=== PATIENT | female | born 1950 | race Caucasian/White ===

== ENCOUNTER 2018-01-22 07:10 | Day surgery (SDC) | payer MEDICARE ==
[2018-01-22 07:43] VITALS: BMI 21.2
[2018-01-22 07:53] VITALS: TEMP 98.4
[2018-01-22 07:55] VITALS: BP 162/72
--- NOTE | 2018-01-22 10:31 | RAD ---
LUMBAR SPINE MYELOGRAM: INDICATION: Low back pain and lumbar radiculopathy. PROCEDURE: Informed consent was obtained, and the patient was transferred to the interventional suite. Marinator im aging was performed prior to the procedure. The patient was then placed into a prone position, and the low back was prepped and draped in the sta ndard sterile fashion. Topical anesthesia was achieved with 1% lidocaine buffered with sodium bicarb deena. Using a 22 gauge needle, uneventful access was obtained into the thecal sac from an interlami thomas approach at the L3-4 level. Clear color CSF was noted at the needle hub. Subsequently, 9 cc Iso huyen M200 was instilled into the thecal sac. This was performed under real-time fluoroscopy with appr opriate contrast opacification of the thecal sac demonstrated during the exam with adequate contrast opacification achieved. The needle was removed. The patient tolerated the procedure well without ev idence of complication. The patient was then transferred to CT Department to undergo further imaging . Please reference separate CT myelogram for additional details. Exposure data: 0.2 minutes fluoroscopy time; 18 mGy*cm^2. IMPRESSION: Technically successful lumbar spine myelogram. POS: [facility]
[2018-01-22] MEDS ORDERED: Iopamidol-M 200 41% 20 ML VIAL ONE (14:57)
--- NOTE | 2018-01-23 07:49 | CT ---
CT LUMBAR SPINE WITH CONTRAST: CT MYELOGRAM OF LUMBAR SPINE: CLINICAL HISTORY: Spondylolisthesis. Low back pain. Lumbar radiculopathy. FINDINGS: There is incidental note of partial visualization of vertebroplasty of T12. Posterior metallic fusio n spans the L2 through the L5 segments with bilateral pedicle screws at L2, L3, L4, and L5, as well a s bilateral vertical interconnecting rods. There is a prominent degree of left convexity scoliosis, which demonstrates apex at the L1-L2 level. There is multilevel endplate osteophytosis, as well as g as vacuum phenomenon and gas containing Schmorl's node formation. No significant perihardware lucenc y is present. The conus medullaris terminates at the L1 level. L5-S1: Bilateral moderate degenerative facet hypertrophy is present. There is a disk osteophyte com plex without high grade central canal stenosis. The right neural foramen is patent. There is minima l narrowing of the left neural foramen. L4-L5: Intervertebral disk space prosthesis is present with broad-based osteophyte. Evidence of pos terior decompression. The thecal sac is patent. There is mild left neural foraminal narrowing. No significant right foraminal stenosis. L3-L4: Posterior decompression is present. There is an intervertebral disk prosthesis with a broad- based osteophyte ridge. The thecal sac is patent. Mild osseous narrowing of each neural foramen is present. L2-L3: Intervertebral disk space prosthesis is present. There is a broad-based osteophyte ridge. N o significant compromise of the thecal sac. There is moderate right and mild to moderate left neural foraminal narrowing. L1-L2: Broad-based disk osteophyte is present. There is bilateral facet hypertrophy. Moderate narr owing of the right subarticular zone is present with impingement upon the traversing right L2 nerve r oot. There is mild central canal stenosis. Mild bilateral neural foraminal narrowing is present. There is diffuse atherosclerosis and evidence of prior bypass graft placement, partially visualized. IMPRESSION: Postoperative lumbar spine with multilevel degenerative change and levoscoliosis. There is no eviden ce of hardware complication or significant central canal stenosis. POS: [facility]
== END 2018-01-22 09:50 | disposition home or self-care (01) ==
LOC: RAD 07:10
PROVIDERS: ATTEND Surgery
PROC: B02BY0Z Computerized Tomography (CT Scan) of Spinal Cord using Other Contrast, Unenhanced and Enhanced (ICD-10-PCS; principal; 2018-01-22)
DX: M47.26 Other spondylosis with radiculopathy, lumbar region (principal); J44.9 Chronic obstructive pulmonary disease, unspecified; I10 Essential (primary) hypertension; K21.9 Gastro-esophageal reflux disease without esophagitis; F32.9 Major depressive disorder, single episode, unspecified; I73.9 Peripheral vascular disease, unspecified; E78.00 Pure hypercholesterolemia, unspecified; Z79.899 Other long term (current) drug therapy
CPT/HCPCS: 62304; 72132

== ENCOUNTER 2018-02-28 11:37 | Inpatient (IN) | payer MEDICARE ==
[2018-03-15 15:26] VITALS: BMI 20.9
[2018-03-18 08:00] LABS: Hemoglobin 12.1 g/dL (12.0-16.0); Mean Corpuscular HGB CONC 34.6 g/dL (32.0-36.0); Mean Corpuscular Hemoglobin 31.4 pg (27.0-31.0); Mean Corpuscular Volume 90.9 fL (78.0-98.0); Mean Platelet Volume 6.9 fL (7.4-10.4); Platelet Count 286 thou/uL (130-400); RBC Distribution Width 11.3 % (11.5-14.5); Red Blood Cell (RBC) Count 3.84 mill/uL (4.20-5.40); White Blood Cell (WBC) Count 7.2 thou/uL (4.8-10.8)
[2018-03-18 08:19] LABS: Anion Gap 15 mmol/L (10-20); BUN (Urea Nitrogen) 11 mg/dL (9.8-20.1); Calc. Creatinine Clearance 58 mL/min (70-130); Calcium 9.4 mg/dL (7.8-10.44); Carbon Dioxide 24 mmol/L (23-31); Chloride 100 mmol/L (98-107); Estimated GFR-MDRD 72; Glucose 98 mg/dL (80-115); Potassium 4.5 mmol/L (3.5-5.1); Sodium 134 mmol/L (136-145)
[2018-03-18] MEDS ORDERED: CEFAZOLIN/Water 2 GM/20 ML SYRINGE ONE (08:31)
[2018-03-18] MEDS ORDERED: Sodium Chloride 0.9% 10 ML ONE (08:42)
[2018-03-18] MEDS ORDERED: Fentanyl 100 MCG/2 ML VIAL ONE ×4 (08:59→11:06)
[2018-03-18] MEDS ORDERED: HYDROmorphone 2 MG/ML VIAL SLOW IVP PRN (10:02)
[2018-03-18] MEDS ORDERED: Ondansetron HCl/PF 4 MG/2 ML Vial IVP PRN (10:02)
[2018-03-18] MEDS ORDERED: Meperidine HCl/PF 25 MG/ML VIAL SLOW IVP PRN (10:02)
[2018-03-18] MEDS ORDERED: Promethazine HCl 25 MG/ML VIAL IM PRN ×2 (10:02→12:42)
[2018-03-18] MEDS ORDERED: Morphine Sulfate 2 MG/ML SYRINGE SLOW IVP PRN (10:02)
[2018-03-18] MEDS ORDERED: Promethazine HCl 25 MG/ML VIAL SLOW IVP PRN (10:02)
--- NOTE | 2018-03-18 10:34 | OP ---
DATE OF PROCEDURE: 03/18/2018 SURGEON: Tino Cruz M.D. PAYROLL SPECIALIST: Preet Smith PA-C. PROCEDURE: Removal of hardware L2-L5, exploration, spinal fusion L2-L5, L1-2 posterolateral arthrode sis, pedicle screw instrumentation L1-2, demineralized bone matrix, local morselized autograft. PROCEDURE IN DETAIL: The patient was brought into the operating room and intubated. She was rolled in a prone position on gel-filled chest rolls. The previous incision was reopened and the L1-2 level was exposed as well as the L2 through L5 hardware. We removed the nuts and rods at these levels. W e explored the spinal fusion and it seemed to be solid. We next placed pedicle screws at L1 bilatera lly using lateral fluoroscopic guidance. A 1 level gael was secured between L1 and L2, secured by nut s, which were final tightened. The wound was then extensively irrigated, immaculate hemostasis was s ecured. A combination of demineralized bone matrix, local morselized autograft was laid over the blair inar, and posterolateral surfaces for the purpose of arthrodesis. Vancomycin powder was applied and the wound was closed in anatomic layers.
[2018-03-18] MEDS ORDERED: HYDROcodone/Acetaminophen 10/325 mg Tablet PO PRN (12:13)
[2018-03-18] MEDS ORDERED: PROVENTIL INHALER 6.7 G (200 INHALATIONS) INH SCH (12:30)
[2018-03-18] MEDS ORDERED: Promethazine 25 MG TAB PO PRN (12:42)
[2018-03-18] MEDS ORDERED: diphenhydrAMINE 50 MG/ML VIAL IVP PRN (12:42)
[2018-03-18] MEDS ORDERED: tiZANidine HCl 4 MG TAB PO PRN (12:42)
[2018-03-18] MEDS ORDERED: Mag-Al 1200 mg/1200 mg/30 ML UDCUP PO PRN (12:42)
[2018-03-18] MEDS ORDERED: Milk Of Magnesia 30 ML UDCUP PO PRN (12:42)
[2018-03-18] MEDS ORDERED: traMADol HCl 50 MG TAB PO PRN ×2 (12:42)
[2018-03-18] MEDS ORDERED: Ondansetron HCl/PF 4 MG/2 ML Vial IM PRN (12:42)
[2018-03-18] MEDS ORDERED: Promethazine HCl 12.5 MG SUPP PR PRN (12:42)
[2018-03-18] MEDS ORDERED: diphenhydrAMINE 25 MG CAP PO PRN (12:42)
[2018-03-18] MEDS ORDERED: Morphine 4 MG/ML VIAL IV PRN (12:45)
[2018-03-18] MEDS ORDERED: PROPOFOL 200 MG/20 ML VIAL ONE (13:07)
[2018-03-18] MEDS ORDERED: Dexamethasone 20 MG/5 ML VIAL ONE (13:07)
[2018-03-18] MEDS ORDERED: Glycopyrrolate 0.2 MG/ML 5 ML SYRINGE ONE (13:07)
[2018-03-18] MEDS ORDERED: Metoclopramide HCl 10 MG/2 ML VIAL ONE (13:07)
[2018-03-18] MEDS ORDERED: Ondansetron HCl/PF 4 MG/2 ML Vial ONE (13:07)
[2018-03-18] MEDS ORDERED: Lidocaine 1% PF 5 ML VIAL ONE (13:07)
[2018-03-18] MEDS ORDERED: PROVENTIL INHALER 6.7 G (200 INHALATIONS) INH PRN (14:05)
[2018-03-18] MEDS ORDERED: Nitroglycerin 0.4 MG TAB (25 Tab Bottle) SL PRN (14:08)
[2018-03-18] MEDS ORDERED: hydrALAZINE 20 MG/ML VIAL SLOW IVP PRN (14:08)
[2018-03-18] MEDS ORDERED: Diabetic Tussin 200 MG/10 ML UDCUP PO PRN (14:08)
[2018-03-18] MEDS ORDERED: Loratadine 10 MG TAB PO PRN (14:08)
[2018-03-18] MEDS ORDERED: Benzonatate 100 MG CAP PO PRN (14:08)
[2018-03-18] MEDS ORDERED: Bisacodyl 5 MG TAB PO PRN (14:08)
[2018-03-18] MEDS ORDERED: Acetaminophen 325 MG TAB PO PRN (14:08)
[2018-03-18] MEDS ORDERED: Senokot 8.6 MG TAB PO PRN (14:08)
[2018-03-18] MEDS ORDERED: cloNIDine 0.1 MG TAB PO PRN (14:08)
[2018-03-18] MEDS: CEFAZOLIN/Water 2 GM/20 ML SYRINGE SLOW IVP SCH ×2 (14:11→22:32)
[2018-03-18] MEDS: tiZANidine HCl 4 MG TAB PO SCH ×2 (14:11→20:23)
[2018-03-18] MEDS: HYDROcodone/Acetaminophen 10/325 mg Tablet PO PRN ×2 (14:13→18:33)
--- NOTE | 2018-03-18 14:34 | PDOC.PN ---
- Subjective Encounter Start Date: 03/18/18 Encounter Start Time: 14:33 Subjective: S/P lumbar spinal Sx.Feels well except for back pain at surgical site -: no nausea/vomiting.no CP/SOB/F/Chills - Objective MAR Reviewed: Yes Vital Signs & Weight: Weight Weight 120 lb Result Diagrams: 03/18/18 07:51 03/18/18 07:51 Phys Exam - Physical Examination Constitutional: NAD HEENT: PERRLA, moist MMs, sclera anicteric, oral pharynx no lesions Neck: no nodes, no JVD, supple, full ROM Respiratory: no wheezing, no rales, no rhonchi, clear to auscultation bilateral Cardiovascular: RRR, no significant murmur, no rub Gastrointestinal: soft, non-tender, no distention, positive bowel sounds Musculoskeletal: no edema, pulses present Neurological: non-focal, normal sensation, moves all 4 limbs Psychiatric: normal affect, A&O x 3 Skin: no rash Dx/Plan (1) HTN (hypertension) Code(s): I10 - ESSENTIAL (PRIMARY) HYPERTENSION Status: Chronic (2) HLD (hyperlipidemia) Code(s): E78.5 - HYPERLIPIDEMIA, UNSPECIFIED Status: Chronic (3) GERD (gastroesophageal reflux disease) Code(s): K21.9 - GASTRO-ESOPHAGEAL REFLUX DISEASE WITHOUT ESOPHAGITIS Status: Chronic (4) Depression Code(s): F32.9 - MAJOR DEPRESSIVE DISORDER, SINGLE EPISODE, UNSPECIFIED Status : Chronic (5) COPD (chronic obstructive pulmonary disease) Status: Chronic (6) PAD (peripheral artery disease) Code(s): I73.9 - PERIPHERAL VASCULAR DISEASE, UNSPECIFIED Status: Chronic (7) S/P lumbar fusion Code(s): Z98.1 - ARTHRODESIS STATUS Status: Acute Comment: POD#0 - Plan PT/OT, DVT proph w/SCDs restart home meds as below. reviewed.hemodynamically stable -: add prn anti hypertensives. -: SCds for DVT prophylaxis. -: add duonebs prn. -: am labs, IM team will follow * . Review of Systems - Review of Systems Constitutional: negative: fever, chills, sweats, weakness, malaise, other Eyes: negative: Pain, Vision Change, Conjunctivae Inflammation, Eyelid Inflammation, Redness, Other ENT: negative: Ear Pain, Ear Discharge, Nose Pain, Nose Discharge, Nose Congestion, Mouth Pain, Mouth Swelling, Throat Pain, Throat Swelling, Other Respiratory: negative: Cough, Dry, Shortness of Breath, Hemoptysis, SOB with Excertion, Pleuritic Pain, Sputum, Wheezing Cardiovascular: negative: chest pain, palpitations, orthopnea, paroxysmal nocturnal dyspnea, edema, light headedness, other Gastrointestinal: negative: Nausea, Vomiting, Abdominal Pain, Diarrhea, Constipation, Melena, Hematochezia, Other Genitourinary: negative: Dysuria, Frequency, Incontinence, Hematuria, Retention , Other Musculoskeletal: Back Pain. negative: Neck Pain, Shoulder Pain, Arm Pain, Hand Pain, Leg Pain, Foot Pain, Other Neurological: negative: Weakness, Numbness, Incoordination, Change in Speech, Confusion, Seizures, Other - Medications/Allergies Allergies/Adverse Reactions: Allergies Allergy/AdvReac Type Severity Reaction Status Date / Time egg Allergy Diarrhea Verified 03/15/18 15:27 Medications: Current Medications Acetaminophen (Tylenol) 650 mg PO Q4H PRN PRN Reason: Headache/Fever or Mild Pain Hydrocodone Bitart/Acetaminophen (Sesser 10/325) 1 tab PO Q4H PRN PRN Reason: PAIN (1-3) Last Admin: 03/18/18 14:13 Dose: 1 tab Hydrocodone Bitart/Acetaminophen (Sesser 10/325) 2 tab PO Q4H PRN PRN Reason: PAIN (4-6) Al Hydroxide/Mg Hydroxide (Maalox) 30 ml PO Q4H PRN PRN Reason: Heartburn or Indigestion Albuterol Sulfate (Proventil Hfa) 2 puff INH ASDIR IRISH Albuterol Sulfate (Proventil Hfa) puff INH ASDIR PRN PRN Reason: Wheezing Ascorbic Acid (Vitamin C) 1,000 mg PO DAILY [facility] Atorvastatin Calcium (Lipitor) 40 mg PO HS IRISH Benzonatate (Tessalon) 100 mg PO Q4H PRN PRN Reason: Cough Bisacodyl (Dulcolax) 10 mg PO DAILYPRN PRN PRN Reason: Constipation Cefazolin Sodium (Ancef) 2 gm SLOW IVP Q8HR IRISH Last Admin: 03/18/18 14:11 Dose: 2 gm Citalopram Hydrobromide (Celexa) 20 mg PO DAILY [facility] Clonidine (Catapres) 0.1 mg PO Q4H PRN PRN Reason: Systolic BP > 160 Diphenhydramine HCl (Benadryl) 25 mg PO Q6H PRN PRN Reason: Itching Diphenhydramine HCl (Benadryl) 25 mg IVP Q6H PRN PRN Reason: Itching Gabapentin (Neurontin) 1,200 mg PO QPM-[facility] Gabapentin (Neurontin) 600 mg PO TID [facility] Last Admin: 03/18/18 14:11 Dose: 600 mg Guaifenesin (Robitussin Sf) 200 mg PO Q4H PRN PRN Reason: Cough Hydralazine HCl (Apresoline) 10 mg SLOW IVP Q4H PRN PRN Reason: Systolic BP > 170 Sodium Chloride (Normal Saline 0.9%) 1,000 mls @ 75 mls/hr IV .[id number] [facility] Loratadine (Claritin) 10 mg PO DAILYPRN PRN PRN Reason: Sinus Symptoms Magnesium Hydroxide (Milk Of Magnesium) 30 ml PO Q12H PRN PRN Reason: Constipation Montelukast Sodium (Singulair) 10 mg PO QPM [facility] Morphine Sulfate (Morphine) 2 mg SLOW IVP Q1H PRN PRN Reason: Moderate Breakthrough Pain Morphine Sulfate (Morphine) 4 mg IV Q1H PRN PRN Reason: SEVERE BREAKTHROUGH PAIN Last Admin: 03/18/18 13:00 Dose: 4 mg Nitroglycerin (Nitrostat) 0.4 mg SL Q5MIN PRN PRN Reason: Chest Pain Non-Formulary Medication (Ascorbic Acid [Vitamin C]) 1,000 mg PO DAILY [facility] Non-Formulary Medication (Omeprazole [Omeprazole]) 20 mg PO DAILY [facility] Ondansetron HCl (Zofran) 4 mg IM Q24H PRN PRN Reason: Nausea/Vomiting Pantoprazole Sodium (Protonix) 40 mg PO DAILY [facility] Promethazine HCl (Phenergan) 12.5 mg IM Q4H PRN PRN Reason: Nausea/Vomiting Promethazine HCl (Phenergan) 12.5 mg PO Q4H PRN PRN Reason: Nausea/Vomiting Promethazine HCl (Phenergan Suppository) 12.5 mg [place] Q4H PRN PRN Reason: Nausea/Vomiting Senna (Senokot) 2 tab PO HSPRN PRN PRN Reason: Constipation Sodium Chloride (Flush - Normal Saline) 10 ml IVF Q12HR IRISH Sodium Chloride (Flush - Normal Saline) 10 ml IVF PRN PRN PRN Reason: Saline Flush Tizanidine HCl (Zanaflex) 4 mg PO TID [facility] Last Admin: 03/18/18 14:11 Dose: 4 mg Tizanidine HCl (Zanaflex) 4 mg PO Q6H PRN PRN Reason: MUSCLE SPASM Tramadol HCl (Ultram) 50 mg PO Q6H PRN PRN Reason: PAIN (1-3) Tramadol HCl (Ultram) 100 mg PO Q6H PRN PRN Reason: PAIN (4-6) Trospium (Trospium) 20 mg PO BID [facility] Varenicline (Chantix) 1 mg PO DAILY [facility]
[2018-03-18] MEDS ORDERED: Gabapentin 300 MG CAP PO SCH (15:00)
[2018-03-18] MEDS ORDERED: Gabapentin 400 MG CAP PO SCH ×2 (17:00→21:00)
[2018-03-18] MEDS: Sodium Chloride 0.9% 1,000 ML IV SCH (19:57)
[2018-03-18] MEDS: TROSPIUM 20 MG TABLET PO SCH (20:24)
[2018-03-18] MEDS ORDERED: Atorvastatin Calcium 40 MG TAB PO SCH (21:00)
[2018-03-18] MEDS ORDERED: Montelukast Sodium 10 mg Tablet PO SCH (21:00)
[2018-03-19] MEDS: Sodium Chloride 0.9% 1,000 ML IV SCH (01:27)
[2018-03-19] MEDS: HYDROcodone/Acetaminophen 10/325 mg Tablet PO PRN ×2 (02:02→11:27)
[2018-03-19 05:43] LABS: #Lymphocytes 1.6 thou/uL (1.20-3.40); #Monocytes 0.9 thou/uL (0.11-0.59); #Neutrophils 12.4 thou/uL (1.40-6.50); %Eosinophils 0.2 % (0.0-10.0); %Lymphocytes 10.7 % (21.0-51.0); %Monocytes 5.8 % (0.0-10.0); %Neutrophils 83.3 % (42.0-75.0); Hemoglobin 10.4 g/dL (12.0-16.0); Mean Corpuscular HGB CONC 34.2 g/dL (32.0-36.0); Mean Corpuscular Hemoglobin 31.2 pg (27.0-31.0); Mean Corpuscular Volume 91.1 fL (78.0-98.0); Mean Platelet Volume 6.8 fL (7.4-10.4); Platelet Count 290 thou/uL (130-400); RBC Distribution Width 11.1 % (11.5-14.5); Red Blood Cell (RBC) Count 3.32 mill/uL (4.20-5.40); White Blood Cell (WBC) Count 14.8 thou/uL (4.8-10.8)
[2018-03-19 06:06] LABS: ALT (SGPT) 11 U/L (8-55); AST (SGOT) 17 U/L (5-34); Albumin 3.7 g/dL (3.4-4.8); Alkaline Phosphatase 56 U/L (40-150); Anion Gap 12 mmol/L (10-20); BUN (Urea Nitrogen) 12 mg/dL (9.8-20.1); Bilirubin, Total 0.4 mg/dL (0.2-1.2); Calc. Creatinine Clearance 62 mL/min (70-130); Calcium 8.5 mg/dL (7.8-10.44); Carbon Dioxide 24 mmol/L (23-31); Chloride 102 mmol/L (98-107); Estimated GFR-MDRD 78; Globulin 2.2 g/dL (2.4-3.5); Glucose 107 mg/dL (80-115); Potassium 3.9 mmol/L (3.5-5.1); Protein, Total 5.9 g/dL (6.0-8.3); Sodium 134 mmol/L (136-145)
[2018-03-19] MEDS: Gabapentin 300 MG CAP PO SCH ×2 (06:42→11:25)
[2018-03-19] MEDS: CEFAZOLIN/Water 2 GM/20 ML SYRINGE SLOW IVP SCH (06:43)
--- NOTE | 2018-03-19 07:13 | DIS ---
DATE OF ADMISSION: 03/18/2018 DATE OF DISCHARGE: 03/19/2018 ATTENDING PHYSICIAN: Dr. Tino Cruz. HOSPITAL COURSE: The patient is a 68-year-old female status post removal of hardware and extension of lumbar fusion L1-L2. Postoperatively, the patient's pain was well controlled with p.o. medications, she was tolerating regular diet , and she was voiding appropriately. She did have a JAMIL drain placed intraoperatively, which had 100 mL output overnight. JAMIL drain was removed the following day. On my exam this morning, the patient is comfortable in the bed. She has 5/5 strength throughout. Sensation intact to light touch. Incision is dry. Dressing had some dark red blood. NO active drainage. Dressing was replaced. We will plan to dismiss the patient to home. I have discussed home care precautions and reasons to reach out to us sooner. We will plan to follow up with the patient in 2 weeks with x-rays. I provided her with a prescription for p.o. antibiotics. Pain management will be continuing her postoperative pain medications as previously prescribed. MARYANNE
[2018-03-19] MEDS: tiZANidine HCl 4 MG TAB PO SCH (08:51)
[2018-03-19] MEDS: TROSPIUM 20 MG TABLET PO SCH (08:51)
[2018-03-19] MEDS ORDERED: Varenicline Tartrate 0.5 MG TAB PO SCH (09:00)
[2018-03-19] MEDS ORDERED: [UNRECOGNIZED DRUG - OTHER] PO SCH (09:00)
[2018-03-19] MEDS ORDERED: Citalopram 20 MG TAB PO SCH (09:00)
[2018-03-19] MEDS ORDERED: Ascorbic Acid 500 mg Chewable Tablet PO SCH ×2 (09:00)
[2018-03-19 11:26] VITALS: BP 189/69; TEMP 98.3
--- NOTE | 2018-03-24 14:25 | EKG ---
Test Reason : PREOP Blood Pressure : / mmHG Vent. Rate : 055 BPM Atrial Rate : 055 BPM P-R Int : 186 ms QRS Dur : 090 ms QT Int : 486 ms P-R-T Axes : 073 063 057 degrees QTc Int : 464 ms Sinus bradycardia Otherwise normal ECG No previous ECGs available Confirmed by BULMARO MARQUEZ (2) on 03/24/2018 2:24:43 PM Referred By: ISH Confirmed By:BULMARO MARQUEZ
== END 2018-03-19 12:50 | disposition home or self-care (01) | DRG 460 ==
LOC: SURG A 03-18 07:20
PROVIDERS: ADMIT Neurological Surgery; ATTEND Neurological Surgery
PROC: 0SG0071 Fusion of Lumbar Vertebral Joint with Autologous Tissue Substitute, Posterior Approach, Posterior Column, Open Approach (ICD-10-PCS; principal; 2018-03-18)
PROC: 0QP004Z Removal of Internal Fixation Device from Lumbar Vertebra, Open Approach (ICD-10-PCS; 2018-03-18)
DX: M54.16 Radiculopathy, lumbar region (principal); I10 Essential (primary) hypertension; E78.5 Hyperlipidemia, unspecified; K21.9 Gastro-esophageal reflux disease without esophagitis; F32.9 Major depressive disorder, single episode, unspecified; J44.9 Chronic obstructive pulmonary disease, unspecified; I73.9 Peripheral vascular disease, unspecified; Z98.1 Arthrodesis status; Z79.51 Long term (current) use of inhaled steroids
CPT/HCPCS: 36415; 76001; 80048; 80053; 85025; 85027; 93005; 93010; A4216; C1713; C1768; G8978-GP-CI; G8979-GP-CI; G8980-GP-CI; J0131; J1100; J2001; J2270; J2405; J2704; J2765; J3010; J3370; J3490

== ENCOUNTER 2018-04-03 16:01 | Outpatient (CLI) | payer MEDICARE ==
--- NOTE | 2018-04-03 18:24 | RAD ---
LUMBAR SPINE TWO VIEWS: 04/03/18 HISTORY: Back pain. Followup exam. COMPARISON: None. CORRELATION: CT myelogram 01/22/18. FINDINGS: there are midline skin beverly. Bilateral transpedicular screws at L1, L2, L3, L4 and L5. No perihard parker lucency. Laminectomy defect at L3, L4, and L5. There is stable loss of disc space height and osteophyte formation at L1-2. Vertebroplasty change at T12 is noted. There is a stable disc prosthesis at L2-L3, L3-L4, and L4-L5. Endovascular stent is noted. IMPRESSION: Uncomplicated lumbar fusion hardware. POS: [facility]
== END 2018-04-03 16:02 | disposition home or self-care (01) ==
LOC: TBSIIMAG 16:01
PROVIDERS: ATTEND Neurological Surgery
DX: M54.9 Dorsalgia, unspecified (principal); Z98.1 Arthrodesis status
CPT/HCPCS: 72100